=== PATIENT | male | born 1980 | race Caucasian/White ===

== ENCOUNTER 2020-06-30 02:17 | Inpatient (IN) ==
[2020-06-30] MEDS ORDERED: HYDROmorphone 2 MG/1 ML VIAL IV STA (02:34)
[2020-06-30] MEDS ORDERED: SODIUM CHLORIDE 0.9% 500 ML IV STA (02:34)
[2020-06-30] MEDS ORDERED: PIPERACILLIN/TAZOBACTAM 3,375 MG in SODIUM CHLORIDE 0.9% 100 ML IV STA (02:34)
[2020-06-30] MEDS ORDERED: ONDANSETRON 4 MG/2 ML VIAL IV STA (02:34)
[2020-06-30 03:04] LABS: Basophils # 0.1 10*3/uL (0.0-0.2); Basophils % 0.7 % (0.0-0.8); Eosinophils # 0.3 10*3/uL (0.0-0.87); Eosinophils % 2.9 % (0.00-10.9); Hematocrit 46.1 VOL% (42.0-52.0); Immature Granulocytes % 0.3 %; Immature Granulocytes Absolute 0.03 #; Lymphocytes # 2.2 10*3/uL (1.4-4.0); Lymphocytes % 23.9 % (21.2-54.2); Mean Corpuscular HGB Conc 34.7 GM/DL (32-36); Mean Corpuscular Volume 83.7 FL (87-102); Mean Platelet Volume 9.8 FL (9.6-12.0); Monocytes % 8.6 % (1.7-12.7); Neutrophils % 63.6 % (38.7-73.9); Platelet Count 228 T/CUMM (130-400); Red Blood Count 5.51 MC/CUMM (3.8-5.5); Red Cell Distribution Width 12.9 % (9.3-17.3); White Blood Count 9.2 T/CUMM (4-12)
[2020-06-30 03:23] LABS: Albumin 3.1 G/DL (3.4-5.0); Bilirubin,Total 0.5 MG/DL (0.2-1.0); Calcium 8.4 MG/DL (8.5-10.1); Osmolality,Calculated 271.8 MOS/KG (273-304)
[2020-06-30] MEDS ORDERED: ALBUTEROL/IPRATROPIUM 3 ML NEB RESP TX PRN (03:53)
[2020-06-30] MEDS ORDERED: ONDANSETRON 4 MG/2 ML VIAL IV PRN (03:53)
[2020-06-30] MEDS ORDERED: HYDROmorphone 2 MG/1 ML VIAL IV PRN (03:53)
[2020-06-30] MEDS ORDERED: GLUCAGON 1 MG VIAL IM PRN (03:53)
[2020-06-30] MEDS ORDERED: DEXTROSE 50% 25 GM/50 ML VIAL IV PRN (03:53)
[2020-06-30] MEDS: SODIUM CHLORIDE 0.9% 1,000 ML IV SCH ×2 (04:18→18:34)
[2020-06-30] MEDS: hydrALAZINE 20 MG/1 ML VIAL IV PRN ×2 (04:41→15:52)
[2020-06-30] MEDS: INSULIN REGULAR 100 UNIT/ML SUBCUT SCH ×4 (06:04→23:26)
[2020-06-30 06:20] LABS: Basophils # 0.1 10*3/uL (0.0-0.2); Basophils % 0.5 % (0.0-0.8); Eosinophils # 0.3 10*3/uL (0.0-0.87); Eosinophils % 3.4 % (0.00-10.9); Hematocrit 46.7 VOL% (42.0-52.0); Hemoglobin 15.9 GM/DL (14.0-18.0); Immature Granulocytes % 0.3 %; Immature Granulocytes Absolute 0.03 #; Lymphocytes # 2.4 10*3/uL (1.4-4.0); Lymphocytes % 25.5 % (21.2-54.2); Mean Corpuscular Volume 84.3 FL (87-102); Mean Platelet Volume 10.2 FL (9.6-12.0); Monocytes % 8.6 % (1.7-12.7); Neutrophils % 61.7 % (38.7-73.9); Platelet Count 257 T/CUMM (130-400); Red Blood Count 5.54 MC/CUMM (3.8-5.5); White Blood Count 9.3 T/CUMM (4-12)
[2020-06-30 06:49] LABS: Albumin 3.2 G/DL (3.4-5.0); Calcium 8.6 MG/DL (8.5-10.1); Osmolality,Calculated 271.7 MOS/KG (273-304); Potassium 3.4 MMOL/L (3.5-5.1); Total Protein 7.2 G/DL (6.4-8.2)
[2020-06-30] MEDS ORDERED: MAGNESIUM HYDROXIDE SUSP 30 ML UDCUP PO PRN (07:58)
[2020-06-30] MEDS: PIPERACILLIN/TAZOBACTAM 3,375 MG in SODIUM CHLORIDE 0.9% 100 ML IV SCH ×2 (10:35→18:35)
[2020-06-30] MEDS: PANTOPRAZOLE 40 MG VIAL IV SCH (10:35)
[2020-06-30] MEDS ORDERED: LABETALOL 20 MG/4 ML SYRINGE IV ONE (17:29)
[2020-06-30] MEDS: ACETAMINOPHEN 325 MG TABLET PO PRN (19:24)
[2020-06-30] MEDS ORDERED: ENOXAPARIN 40 MG/0.4 ML SYRINGE SUBCUT SCH (21:00)
[2020-07-01] MEDS: PIPERACILLIN/TAZOBACTAM 3,375 MG in SODIUM CHLORIDE 0.9% 100 ML IV SCH ×2 (02:04→11:23)
[2020-07-01] MEDS: INSULIN REGULAR 100 UNIT/ML SUBCUT SCH ×2 (06:23→11:50)
[2020-07-01 07:03] LABS: Bilirubin,Urine Negative (Negative); Blood, Urine Small mg/dL (Negative); Glucose,Urine (UA) 50 mg/dL (Negative); Ketones,Urine 5 mg/dL (Negative); Mucus,Urine Occasional /LPF (Occasional); Nitrite,Urine Negative (Negative); Protein,Urine Negative; RBC,Urine 4 /HPF (0-4); Squamous Epithelial Cell,Urine Occasional /HPF (0-10); Urine Appearance Slightly Hazy (Clear); Urine Color Yellow (Yellow); Urine Specific Gravity 1.017 (1.001-1.035); Urine Urobilinogen < 2.0 EU/DL (0.2-1.0)
[2020-07-01] MEDS: SODIUM CHLORIDE 0.9% 1,000 ML IV SCH ×2 (07:26→11:23)
[2020-07-01] MEDS: PANTOPRAZOLE 40 MG VIAL IV SCH (09:07)
[2020-07-01] MEDS: hydrALAZINE 20 MG/1 ML VIAL IV PRN (09:09)
[2020-07-01] MEDS: ACETAMINOPHEN 325 MG TABLET PO PRN (11:56)
[2020-07-01 11:57] VITALS: BP 163/103
[2020-07-01] MEDS ORDERED: METOPROLOL SUCCINATE XL 25 MG TABLET PO SCH (12:25)
== END 2020-07-01 16:00 | disposition home or self-care (01) | DRG 392 ==
LOC: EDUNIT# → EDBD → N.ED 02:17 → N.EDINP 02:49 → N.3E 03:41
PROVIDERS: ADMIT Surgery; ATTEND Surgery